=== PATIENT | female | born 1975 | race African-American/Black ===

== ENCOUNTER 2017-02-17 05:09 | Inpatient (IN) | payer MEDICAID ==
[2017-02-15 10:56] LABS: BASOPHILS 0.3 % (0.0-2.0); EOSINOPHILS 1.1 % (0-7); HEMATOCRIT 27.7 % (36.0-48.0); HEMOGLOBIN 8.5 g/dL (12-16); IMMATURE GRANULOCYTES 0.2 % (0-5); LYMPHOCYTES 27.1 % (15-50); MCH 21.6 pg (26.0-34.0); MCHC 30.7 g/dL (31.0-37.0); MCV 70.3 fL (80.0-100.0); MEAN PLATELET VOLUME 9.2 fL (7.4-10.4); MONOCYTES 12.6 % (2-11); NEUTROPHILS 58.7 % (40-80); RBC 3.94 10x6/uL (4.00-5.40); RDW 18.1 % (11.5-14.5); WBC 6.2 10x3/uL (4.8-10.8)
[2017-02-15 11:01] LABS: PLATELET COUNT 444 10x3/uL (130-400)
[2017-02-15 11:41] LABS: CALC OSMOLALITY 275 mosm/kg (275-300); CALCIUM 8.5 mg/dL (8.5-10.1); CARBON DIOXIDE 26.4 mmol/L (21.0-32.0); CHLORIDE - SERUM 105 mmol/L (98-107); CREATININE - SERUM 0.8 mg/dL (0.6-1.3); GLUCOSE 80 mg/dL (74-106); POTASSIUM - SERUM 3.8 mmol/L (3.5-5.1); SODIUM 139 mmol/L (136-145); UREA NITROGEN 10 mg/dL (7-18); eGFR NON AFRICAN AMERICAN 84 mL/min (90-120)
[2017-02-17] VITALS (13 sets, daily range): BP systolic 131–155; BP diastolic 78–91; Ht 167.6 cm; Wt 69.1 kg
[~2017-02-17] VITALS: Ht 167.6 cm; Wt 69.1 kg
[~2017-02-17 05:09] MED LIST: HYDROCHLOROTH12.5 M1 PO; PROTONIX20 MG PO; XANAX0.25 MG PO
[2017-02-17 06:13] LABS: HCG URINE NEGATIVE (NEGATIVE)
--- NOTE | 2017-02-17 07:17 | HP ---
PATIENT: FLORIDALMA JAY MEDICAL RECORD: [id number] ACCOUNT: [id number] LOCATION:[facility] [place] 79 ADMISSION DATE: 02/17/17 HISTORY AND PHYSICAL EXAMINATION HISTORY OF PRESENT ILLNESS: This patient is a 42-year-old 3, para 2, AB 1, black female with myomas, severe dysmenorrhea, menorrhagia scheduled for hysterectomy. ALLERGIES: No known medical allergies medication allergies. CURRENT MEDICATIONS: Include alprazolam and hydrochlorothiazide. PREVIOUS SURGERIES: Include a tubal ligation in 1997. FAMILY HISTORY: Noncontributory. REVIEW OF SYSTEMS: Denies chest pain or dyspnea. Positive for abnormal bleeding and severe dysmenorrhea. SOCIAL HISTORY: The patient is single, has been a smoker in the past. Nonsmoker now. Occasional ethanol use. Works as a information clerk cashier. PHYSICAL EXAMINATION: VITAL SIGNS: Weight is 162, blood pressure 140/80. HEENT: Grossly unremarkable. LUNGS: Clear. HEART: Regular rate and rhythm. BREASTS: Current and negative. ABDOMEN: Soft, large myomatous uterus is palpable. PELVIC: Current and deferred for anesthesia. EXTREMITIES: No cyanosis, clubbing or edema. NEUROLOGICAL: Grossly intact. IMPRESSION: Reveals a large myomatous uterus measured at 8.6 cm; however, palpably, it is much larger and contains myomas. She has negative cervical cultures. She has benign endometrial biopsy. PLAN: A total abdominal hysterectomy, possible bilateral salpingo-oophorectomy, ovarian conservation is planned if possible. I have discussed the potential risks of surgery including anesthesia, infection, bleeding, possibility of injury to other organs, and possibility of second operation to repair problems. I have answered all her questions. TRANSINT:[id number] Voice Confirmation ID: [id number] DOCUMENT ID: [id number] HISTORY AND PHYSICAL [id number] FLORIDALMA JAY BRENDA MD at 0717 CC: [id number] DICTATION DATE: 02/15/17 1640 CAMPUS ADMINISTRATOR: 02/15/17 1720 [place] [address]
--- NOTE | 2017-02-17 11:00 | NUR ---
PT WAS RECECEIVED FROM RECOVERY. SHE IS ASLEEP BUT EASY TO AROUSE. PT IS TRANSFERRED FROM STRETCHER TO BED. TOLERATED WELL GEN- ASLEEP BUT EASY TO AROUSE. LUNGS- CLEAR. HEART- RRR. ABD WITH UP AND DOWN INCISION. BULKY DRESSING INTACT. SMALL AMOUNT OF BLEEDING. SCD'S INTACT. IV PATENT R HAND. SALINE LOCK PATENT LEFT HAND. GROVES INTACT WITH ABOUT 150 CC LIGHT GREEN URINE. IV LR AT 125 CC. DILAUDID CHIEF PSYCHOLOGY INITIATED. PT INSTRUCTED . BED IS LOW, SIDE RAILS UP X 2 AND CALL LLIGHT IN REACH.
--- NOTE | 2017-02-17 11:45 | NUR ---
PT IS RESTING. FAMILY AT BEDSIDE. I EXPLAINED POST OP INSTRUCTIONS AND EQUIPMENT TO FAMILY.
--- NOTE | 2017-02-17 12:30 | NUR ---
PT STILL RANKS PAIN A 8. ECOURAGED HER TO PUSH HER DELIMER. GAVE HER SOME SPRITE., ENCOURAGED LIQUIDS. PT HAS TOLERATED LIQUIDS WELL. J OUT PUT IMPROVING.
--- NOTE | 2017-02-17 14:15 | NUR ---
DR QUEVEDO CALLED TO CHECK ON PT. I GAVE HER REPORT. SHE ORDERED A REPEAT HEMOGERAM TO BE DONE AT 1800. ORDERED.
--- NOTE | 2017-02-17 15:01 | NUR ---
PT IS RESTING IN BED. STATES HER PAIN IS ABOUT A 6. IV PATENT. GROVES INTACT. SCD'S INTACT. DRESSING CLEAN , DRY AND INTACT. FAMILY AT BEDSIDE. TOOK PT A SPRITE. SHE HAS BEEN DRINKING WATER AND TOLERATING WELL.
--- NOTE | 2017-02-17 16:15 | NUR ---
PT RATES PAIN A 8/10. TORADOL GIVEN SCHEDULED. URINE OUTPUT HAS BEEN 900 TOTAL SINCE 1100. URINE IS LIGHT GREEN IN COLOR.
--- NOTE | 2017-02-17 18:17 | NUR ---
PTS BED PADS CHANGED. MINIMAL BLEEDING. PT TOLERATED WELL. SON AT BEDSIDE. IV PATENT R HAND, SALINE LOCK INTACT LEFT HAND. GROVES INTACT AND SECURED TO R THIGH. SCD'S ARE ON. BED IS LOW, SIDE RAILS UP X 2 AND CALL LIGHT IN REACH.
[2017-02-17 18:43] LABS: HEMATOCRIT 31.7 % (36.0-48.0); HEMOGLOBIN 10.1 g/dL (12-16); MCH 23.7 pg (26.0-34.0); MCHC 31.9 g/dL (31.0-37.0); MCV 74.2 fL (80.0-100.0); MEAN PLATELET VOLUME 9.2 fL (7.4-10.4); RBC 4.27 10x6/uL (4.00-5.40); RDW 17.7 % (11.5-14.5); WBC 13.4 10x3/uL (4.8-10.8)
--- NOTE | 2017-02-17 19:56 | NUR ---
PT RESTING QUIETLY AT THIS TIME WATCHING TV. FAMILY MEMBER AT BEDSIDE. REQUESTS PILLOW AT THIS TIME. DENIES NEEDS. BED LOW. PHONE AND CALL LIGHT IN REACH. SRX2.
--- NOTE | 2017-02-17 20:25 | NUR ---
PT LYING IN BED WATCHING TV AT THIS TIME. FAMILY AT BEDSIDE. VSS. IV NOTED TO LEFT HAND. INFUSING D5LR @ 125. PATENT. DRESSING CDI. HEART RRR. LUNG SOUNDS CLEAR BILATERALLY. BOWEL SOUNDS ACTIVE X4 QUADRENTS. VERTICAL INCISION NOTED TO ABDOMEN WITH DRESSING. DRESSING CDI. GROVES CATHETER ATTACHED TO RIGHT THIGH. DRAINING LIGHT GREEN URINE. NO BLOOD NOTED TO BLUE PAD UNDER PT. SCDS NOTED TO BLE. PEDAL PULSES EQUAL BILATERALLY. PT RATES PAIN 3/10 AT THIS TIME. DENIES NEEDS. BED LOW. PHONE AND CALL LIGHT IN REACH. SRX2.
--- NOTE | 2017-02-17 21:47 | NUR ---
ADMINISTERED PEPCID PO PER ORDERS AT THIS TIME. PT REQUESTS ICE WATER AT THIS TIME. DENIES OTHER NEEDS. BED LOW. PHONE AND CALL LIGHT IN REACH. SRX2.
--- NOTE | 2017-02-17 22:25 | NUR ---
TORADOL ADMINISTERED IVP PER ORDERS AT THIS TIME FOR PAIN 07/08. PT DENIES NEEDS. BED LOW. PHONE AND CALL LIGHT IN REACH. SRX2.
[2017-02-18 00:05] VITALS: BP 129/73
--- NOTE | 2017-02-18 00:05 | NUR ---
PT RESTING QUIETLY AT THIS TIME. DENIES NEEDS. VSS. EMPTIED 1500 LIGHT GREEN URINE FROM GROVES AT THIS TIME. BED LOW. PHONE AND CALL LIGHT IN REACH. SRX2.
--- NOTE | 2017-02-18 01:53 | NUR ---
PT ENTRANCE GUARD LIGHT. D5LR INFUSION COMPLETE AT THIS TIME. CHANGED EMPTY D5LR TO FULL BAG OF D5LR. PT DENIES NEEDS AT THIS TIME. BED LOW. PHONE AND CALL LIGHT IN REACH. SRX2.
[2017-02-18 03:30] VITALS: BP 112/68
--- NOTE | 2017-02-18 03:30 | NUR ---
PT RESTING QUIETLY AT THIS TIME. AROUSED EASILY. VSS. EMPTIED 600 CC FROM GROVES AT THIS TIME. PT DENIES NEEDS. BED LOW. PHONE AND CALL LIGHT IN REACH. SRX2.
--- NOTE | 2017-02-18 05:36 | NUR ---
PT RESTING QUIETLY AT THIS TIME WITH EYES CLOSED. RESPIRATIONS EVEN, NON-LABORED. NO ACUTE DISTRESS NOTED AT THIS TIME. BED LOW. PHONE AND CALL LIGHT IN REACH. SRX2.
--- NOTE | 2017-02-18 06:38 | NUR ---
PT AWAKE LOOKING AT CELL PHONE AT THIS TIME. DENIES NEEDS. BED LOW. PHONE AND CALL LIGHT IN REACH. SRX2.
[2017-02-18 06:44] LABS: HEMATOCRIT 27.6 % (36.0-48.0); HEMOGLOBIN 8.9 g/dL (12-16); MCH 23.5 pg (26.0-34.0); MCHC 32.2 g/dL (31.0-37.0); MCV 72.8 fL (80.0-100.0); MEAN PLATELET VOLUME 9.7 fL (7.4-10.4); RBC 3.79 10x6/uL (4.00-5.40); RDW 18.1 % (11.5-14.5); WBC 10.9 10x3/uL (4.8-10.8)
--- NOTE | 2017-02-18 07:15 | NUR ---
PT IS RECEIVED THIS AM LYING IN BED. PT OFFERS NO COMPLAINTS. HER SON STAYED WITH HER LAST PM. BED IS LOW, SIDE RAILS UP X 2 AND CALL LIGHT IN REACH. GEN- AWAKE AND ALERT. LUNGS- CLEAR. HEART- RRR. PT HAS A BIRTHMARK NOTED ON HER LEFT SHOULDER WHICH LOOKS LIKE A BRUISE. ABDOMEN IS SOFT. BS+ DRESSING INTACT MOST OF ABDOMEN. CLEAN , DRY AND INTACT. EXT- SCD'S INTACT. GROVES INTACT WITH GOOD URINE OUTPUT WHICH IS JANE IN COLOR. IV PATENT R HAND WITH D5LR INFUSING AT 125 CC/HR AND DILAUDID PELLET MILL OPERATOR WHICH HAS BEEN TURNED OFF. SALINE LOCK PATENT LEFT HAND.
--- NOTE | 2017-02-18 07:22 | OP ---
PATIENT NAME: FLORIDALMA JAY MEDICAL RECORD: [id number] :79 LOCATION:[facility] D.1217 ADMISSION DATE:02/17/17 SURGEON: JEN QUEVEDO MD DATE OF OPERATION: 02/17/2017 PREOPERATIVE DIAGNOSES: Myomas, dysmenorrhea, menorrhagia and anemia. POSTOPERATIVE DIAGNOSES: Myomas, dysmenorrhea, menorrhagia and anemia. PROCEDURE: Total abdominal hysterectomy with bilateral salpingectomy. SURGEON: Jen Quevedo MD ANESTHESIA: General. FINDINGS: An irregular 18-week size myomatous uterus filling the pelvis and lower abdomen. Normal-appearing ovaries. Normal-appearing tubes. ESTIMATED BLOOD LOSS: 350 cc. COMPLICATIONS OF SURGERY: None. OPERATIVE NOTE: The patient was taken to the OR and under adequate general anesthesia, prepped and draped in the usual manner for abdominal procedures. Examination revealed a large irregular uterus filling the entire lower abdomen. Decision was made for a vertical incision. Vertical incision was made from the symphysis pubis to the umbilicus and extending to the left of the umbilicus approximately 4 cm into the upper abdomen. This incision was extended through subcutaneous tissue, fascia, dividing muscles in the midline. Peritoneum elevated and incised and this incision extended from the symphysis pubis to the upper limits of the incision. This revealed an 18-week size very irregular myomatous uterus filling the entire pelvis and lower abdomen as described above. Ovaries appeared to be normal. Tubes appeared to be normal. No other abnormalities were visible in the abdomen. The round ligaments were identified on the right and left and ligated using Geovanna clamps and #1 chromic suture. The uteroovarian ligaments and fallopian tubes were ligated near the uterine cornu on the right and left using Geovanna clamps and #1 chromic suture. Ovaries were then moved to the upper abdomen and dissection anteriorly along the broad ligament was performed without difficulty or complication. The uterine vessels were ligated on the right and left using Geovanna clamps and #1 chromic suture. Once this was accomplished, the uterine fundus was amputated from the uterine cervix using electrocautery. Hemostasis remained good. The cervix was grasped using Allis clamps. The bladder was advanced inferiorly over the cervix using blunt dissection and sharp dissection with Metzenbaum scissors. The cardinal ligaments were progressively ligated using Geovanna clamps and #1 chromic suture. The vaginal angles were then clamped on the right and left and specimen excised. This portion of the specimen included the cervix, the previous portion of the specimen included uterine fundus. Vaginal angles were made hemostatic using a U configuration #1 chromic suture. Vaginal apex closed with [id number] #1 chromic sutures. The pelvis was copiously irrigated and suctioned and hemostasis was confirmed. The tubes were then addressed and excised using #1 chromic free ties and sent as a part of the specimen. Pelvis was again copiously irrigated and suctioned and hemostasis confirmed. Yousif was applied at the vaginal apex and other raw surfaces in the OPERATIVE REPORT [id number] FLORIDALMA JAY S pelvis. Sponge, needle counts were correct. All instruments were removed. Methylene blue was given early in the case to confirm integrity of the urinary tract. There was not spillage in the abdomen or pelvis. The fascial layer was closed with a running noninterlocking #1 PDS loop suture. Skin reapproximated in 2 layers, first layer a running noninterlocking 2-0 plain gut suture followed by a subcuticular 2-0 plain gut suture. Dermabond was applied. A Steri-Strip dressing was applied followed by a pressure dressing. The patient went to the recovery area in good condition. Sponge and needle counts correct times 2. TRANSINT:[id number] Voice Confirmation ID: [id number] DOCUMENT ID: [id number] JEN QUEVEDO MD at 0722 CC: [id number] DICTATION DATE: 02/17/17 1008 SERVICE DESK SPECIALIST: 02/17/17 1413 ADM IN [place] [id number] [place] [address]
[2017-02-18 07:30] VITALS: BP 134/80
--- NOTE | 2017-02-18 10:10 | NUR ---
REMOVED PATIENT'S GROVES CATHETER AFTER DEFLATING THE BALLOON AND GIVING EXPLANATION OF WHAT WE WERE DOING. GROVES FULLY INTACT UPON REMOVAL. 300CC OF URINE EMPTIED FROM COLLECTION BAG. IV SL TO THE LEFT HAND REMOVED PER REQUEST DUE TO IRRITATION. DISCUSSED THE POC FOR THE DAY AND THE PATIENT EXPRESSES UNDERSTANDING.
--- NOTE | 2017-02-18 10:49 | NUR ---
PT IS RESTING IN BED. STATES HER PAIN IS A 7-8. TORADOL GIVEN IV. SHE HAS RECEIVED 5 OUT OF 6 DOSES SCHEDULED. STATES HER PAIN IS MAINLY ON THE R SIDE OF HER ABDOMEN. SHE STATES THAT DR QUEVEDO LEFT HER OVARIES. BED IS LOW, SIDE RAILS UP X 2 AND CALL LIGHT IN REACH.
--- NOTE | 2017-02-18 13:13 | NUR ---
PT UP TO GO TO BATHROOM WITH ASSISTANCE. PT VOIDED 400 CC JANE COLORED URINE. PT TOLERATED GETTING UP FOR THE FIRST TIME VERY WELL. BRUSHED PTS HAIR FOR HER. BED IS LOW, SIDE RAILS UP X 2 AND CALL LIGHT IN REACH.
--- NOTE | 2017-02-18 17:49 | NUR ---
PT UP TO BATHROOM. DOING WELL. VOIDED 500 CC. WE THEN WALKED IN HALLWAY TO WAITING ROOM AND BACK. PT TOLERATED WELL. PT BACK TO BED. DRESSING REMOVED. INCISION CLEAN AND DRY. INCISION INTACT. PT INSTRUCTED ON INCISION CARE.
[2017-02-18 19:18] VITALS: BP 136/89
--- NOTE | 2017-02-18 19:18 | NUR ---
PT RECEIVED SITTING UP IN BED ON CELL PHONE AT THIS TIME. AAOX3. VSS. S/L NOTED TO RIGHT WRIST. DRESSING CDI. HEART RRR. LUNG SOUNDS CLEAR BILATERALLY. BOWEL SOUNDS ACTIVE X4 QUADRENTS. ABDOMEN SOFT WITH TENDERNESS. VERTICAL INCISION NOTED TO ABDOMEN WITH STERI STRIPS. CDI. NO REDNESS, SWELLING, OR PURULENT DRAINAGE NOTED. PT RATES PAIN 7/10 AT THIS TIME. SCDS NOTED TO BLE. NO BLOOD NOTED TO PAD UNDER PT AT THIS TIME. PT REQUESTS ICE WATER. DENIES OTHER NEEDS. BED LOW. PHONE AND CALL LIGHT IN REACH. SRX2.
--- NOTE | 2017-02-18 20:38 | NUR ---
ADMINISTERED OXYCODONE PO PER ORDERS AT THIS TIME FOR PAIN PT RATES 06/07. PT DENIES OTHER NEEDS. BED LOW. PHONE AND CALL LIGHT IN REACH. SRX2.
--- NOTE | 2017-02-18 21:24 | NUR ---
PT GETTING UP IN SHOWER AT THIS TIME. COMPLETE BED LINEN CHANGE DONE AT THIS TIME. PT DENIES NEEDS. BED LOW. PHONE AND CALL LIGHT IN REACH. SRX2.
--- NOTE | 2017-02-18 22:24 | NUR ---
PT C/O MILD SOB. VITAL SIGNS TAKEN. BP-129/87 PULSE-95 O2 98% ON ROOM AIR. INSTRUCTED PT TO TAKE STEADY DEEP BREATHS. PT BREATHING EVENED OUT. INSTRUCTED PT I WOULD TURN LIGHT OFF AND TO TRY AND GET A LITTLE REST. WILL CONTINUE TO MONITOR. BED LOW. PHONE AND CALL LIGHT IN REACH. SRX2.
[2017-02-18 23:30] VITALS: BP 126/79
--- NOTE | 2017-02-18 23:30 | NUR ---
PT RESTING QUIETLY AT THIS TIME WITH EYES CLOSED. AROUSED EASILY. VSS. PT REQUESTS BLANKET AT THIS TIME. DENIES OTHER NEEDS. BED LOW. PHONE AND CALL LIGHT IN REACH. SRX2.
--- NOTE | 2017-02-19 01:27 | NUR ---
PT ELECTROMYOGRAPHIC TECHNICIAN LIGHT. REQUESTS MEDICATION FOR PAIN 08/08 AT THIS TIME. ADMINISTERED OXYCODONE PO PER ORDERS AT THIS TIME. PT DENIES OTHER NEEDS. BED LOW. PHONE AND CALL LIGHT IN REACH. SRX2.
[2017-02-19 03:30] VITALS: BP 130/81
--- NOTE | 2017-02-19 03:30 | NUR ---
PT RESTING QUIETLY AT THIS TIME WITH EYES CLOSED. AROUSED EASILY. PT DENIES NEEDS AT THIS TIME. BED LOW. PHONE AND CALL LIGHT IN REACH. SRX2.
--- NOTE | 2017-02-19 05:40 | NUR ---
PT RESTING QUIETLY AT THIS TIME WITH EYES CLOSED. RESPIRATIONS EVEN, NON-LABORED. NO ACUTE DISTRESS NOTED AT THIS TIME. BED IN LOWEST. PHONE AND CALL LIGHT IN REACH. SRX2.
--- NOTE | 2017-02-19 06:30 | NUR ---
PT RINGS CL. THIS RN TO BEDSIDE. PT C/O INCISIONAL PAIN RATED 8/10. PLAN TO BRING MEDICATION.
--- NOTE | 2017-02-19 06:35 | NUR ---
OXYCODONE IR GIVEN FOR PAIN RATED 8/10 PER ORDERS. SEE EMAR. PT DENIES FURTHER NEEDS AT THIS TIME. WILL CONTINUE TO MONITOR.
[2017-02-19 07:30] VITALS: BP 148/76
--- NOTE | 2017-02-19 07:30 | NUR ---
PT IS RECEIVED LYING IN BED THIS AM. SHE STATES PAIN IS AN 8. SHE RECEIVED PAIN MED AT 0630. GEN- AWAKE AND ALERT. LUNGS- CLEAR. HEART- RRR. ABD- SOFT, TENDER. BS- FEW. INCISION IS VERTICAL AND IS CLEAN DRY AND INTACT. DERMABOND AND STERI STRIPS INTACT. 4x4 GAUZE PLACED AT CREASE TO WICK AWAY MOISTURE. EXT- NO EDEMA. WARM AND DRY. PULSES PALPABLE. IV R HAND INTACT. TRIED TO FLUSH WITH NS AND WAS UNABLE TO FLUSH. SALINE LOCK D'CD. TIP INTACT. PT IS VOIDING WITHOUT DIFFICULTY. PT HAS BEEN AMBULATING.
--- NOTE | 2017-02-19 08:00 | NUR ---
DR QUEVEDO HERE TO SEE PT. NEW ORDERS NOTED. DR QUEVEDO STRESSED HER AMBULATING AND MOVING AROUND SO SHE WILL PASS GAS. DR QUEVEDO ALSO OREDERED HER AN ABDOMINAL BINDER.
--- NOTE | 2017-02-19 10:17 | NUR ---
PT IS SLEEPING. EASILY AROUSED. BED IS LOW, SIDE RAILS UP X 2 AND CALL LIGHT IN REACH.
--- NOTE | 2017-02-19 11:58 | NUR ---
PROVIDED PAIN MEDICATION ORDERED AND REQUESTED FOR PAIN OF 8 ON NUMERIC SCALE. ASKS FOR LIGHTS TO BE OFF AND STATES THAT SHE WANTS TO GET SOME REST. S/R UP X 2, BED IN LOWEST POSITION, CALL LIGHT AND PHONE WITHIN REACH.
--- NOTE | 2017-02-19 12:28 | NUR ---
RESTING WITH EYES CLOSED. EASILY AROUSED. RATES PAIN LEVEL 2 ON NUMERIC SCALE. STATES "ITS FEELING BETTER".
--- NOTE | 2017-02-19 12:30 | NUR ---
DR QUEVEDO IS HERE TO SEE PT. PT STATES THAT SHE HAS NOT PASSED ANY GAS AND WOULD LIKE TO STAY ANOTHER NIGHT. DR QUEVEDO OK'D. ENCOURAGED PT TO AMBULATE.
--- NOTE | 2017-02-19 14:00 | NUR ---
PT IS STILL SLEEPING. BED IS LOW, SIDE RAILS UP X 2 AND CALL LIGHT IN REACH.
--- NOTE | 2017-02-19 15:30 | NUR ---
PT CAME OUT TO DESK AND REQUEST THAT I WALK WITH HER. I DID. ABDOMINAL BINDER PUT ON HER. SHE FELT MUCH MORE SECURE ONCE BINDER WAS APPLIED. WE WALKED 250 FT. PT BACK TO ROOM AND WANTED TO GET IN SHOWER. STATES SHOWER FELT GREAT. HER LINENS WERE CHANGED.
--- NOTE | 2017-02-19 17:11 | NUR ---
PT IS RESTING IN BED. SHE DOESN'T WANT TO DO ANYTHING AT THIS TIME.
[2017-02-19 19:19] VITALS: BP 139/90
--- NOTE | 2017-02-19 19:19 | NUR ---
PT RECEIVED LYING IN BED RESTING QUIETLY AT THIS TIME. AAOX3. VITAL SIGNS TAKEN. BP-139/90. S/L NOTED TO RIGHT WRIST. DRESSING CDI. PT RATES PAIN 7/10 AT THIS TIME. HEART RRR. LUNG SOUNDS CLEAR BILATERALLY. BOWEL SOUNDS ACTIVE X4 QUADRENTS. ABDOMEN SOFT WITH TENDERNESS. VERTICAL INCISION NOTED TO ABDOMEN WITH STERI STRIPS. CDI. NO REDNESS, SWELLING, OR PURULENT DRAINAGE NOTED. SCDS NOTED TO BLE. PT DENIES NEEDS AT THIS TIME. REQUESTS LIGHT BE TURNED OFF. BED LOW. PHONE AND CALL LIGHT IN REACH. SRX2.
--- NOTE | 2017-02-19 20:44 | NUR ---
PT TALKING ON PHONE AT THIS TIME. DENIES NEEDS. BED LOW. PHONE AND CALL LIGHT IN REACH. SRX2.
--- NOTE | 2017-02-19 21:13 | NUR ---
PT AMBULATED TO L&D WAITING ROOM AND BACK TWICE AT THIS TIME. DENIES NEEDS.
--- NOTE | 2017-02-19 22:26 | NUR ---
ADMINISTERED OXYCODONE PO PER ORDERS AT THIS TIME FOR PAIN PT RATES 06/07. DENIES NEEDS. BED LOW. PHONE AND CALL LIGHT IN REACH. SRX2.
[2017-02-19 23:46] VITALS: BP 123/88
--- NOTE | 2017-02-19 23:46 | NUR ---
PT RESTING QUIETLY AT THIS TIME. VSS. PT REQUESTS PUDDING AND SABINA CRACKERS AT THIS TIME. DENIES OTHER NEEDS. BED LOW. PHONE AND CALL LIGHT IN REACH. SRX2.
--- NOTE | 2017-02-20 03:32 | NUR ---
PT RESTING QUIETLY AT THIS TIME WITH EYES CLOSED. AROUSED EASILY. DENIES NEEDS. BED LOW. PHONE AND CALL LIGHT IN REACH. SRX2.
[2017-02-20 03:33] VITALS: BP 125/80
--- NOTE | 2017-02-20 05:01 | NUR ---
PT REQUESTS MEDICATION FOR PAIN 05/08 AT THIS TIME. ADMINISTERED OXYCODONE PER ORDERS. PT DENIES OTHER NEEDS. BED LOW. PHONE AND CALL LIGHT IN REACH. SRX2.
--- NOTE | 2017-02-20 06:14 | NUR ---
PT RESTING QUIETLY AT THIS TIME. AROUSED EASILY. DENIES NEEDS. BED LOW. PHONE AND CALL LIGHT IN REACH. SRX2.
[2017-02-20 07:50] VITALS: BP 126/92
--- NOTE | 2017-02-20 07:50 | NUR ---
PT AWAKE, ALERT, RESTING IN BED. TURNS SELF FROM SIDE TO SIDE AD JUVENTINO. VERTICAL MIDLINE ABD INC C/D/I WITH STERI STRIPS. PT HAS SMALL PILLOW NEXT TO INCISION TO BRACE. PT NOTED SMALL AMT OF SEROUS DRAINAGE ON PILLOW. FUNMI PAD PLACED AT LOWER POLE OF INCISION. REG DIET SERVED AND TOLERATED. PT STATES SHE PASSED GAS LAST NIGHT. ENCOURAGED AMBULATION.
--- NOTE | 2017-02-20 08:32 | NUR ---
RESTING WITH LIGHTS DIMMED.
--- NOTE | 2017-02-20 09:10 | NUR ---
AM MEDS GIVEN. PT SITTING UP TALKING ON PHONE. BEEF BROTH PROVIDED REQUESTED. PT ASKS FOR TEMP TO BE TAKEN-98.4
--- NOTE | 2017-02-20 09:38 | NUR ---
IN TO REASSESS PAIN. PT RESTING EASILY WITH EYES CLOSED. LEFT UNDISTURBED.
--- NOTE | 2017-02-20 10:25 | NUR ---
CONTINUES TO REST EASILY WITH LIGHTS DIMMED. LEFT UNDISTURBED.
--- NOTE | 2017-02-20 10:39 | NUR ---
LAB HERE FOR STAT HEMOGRAM.
--- NOTE | 2017-02-20 10:40 | NUR ---
LAB HERE FOR LAB DRAW.
--- NOTE | 2017-02-20 10:50 | NUR ---
DR. QUEVEDO HERE FOR ROUNDS.
[2017-02-20 11:58] LABS: HEMATOCRIT 27.7 % (36.0-48.0); HEMOGLOBIN 8.9 g/dL (12-16); MCH 23.3 pg (26.0-34.0); MCHC 32.1 g/dL (31.0-37.0); MCV 72.5 fL (80.0-100.0); MEAN PLATELET VOLUME 9.1 fL (7.4-10.4); RBC 3.82 10x6/uL (4.00-5.40); WBC 11.8 10x3/uL (4.8-10.8)
--- NOTE | 2017-02-20 12:11 | NUR ---
DR. QUEVEDO ADVISED OF PT'S LAB. D/C ORDER REC'D.
[2017-02-20] MEDS ORDERED: MEPERIDINE HCL50 MG PO (12:13)
[2017-02-20] MEDS ORDERED: IBUPROFEN600 MG PO (12:13)
--- NOTE | 2017-02-20 12:30 | NUR ---
D/C INSTRUCTIONS EXPLAINED TO PT. VOICED UNDERSTANDING. COPIES OF ALL GIVEN, WELL WRITTEN RX'S FOR DEMEROL AND MOTRIN PER DR. QUEVEDO.
--- NOTE | 2017-02-20 13:00 | NUR ---
D/C'D HOME VIA W/C TO PRIVATE CAR.
--- NOTE | 2017-02-22 07:28 | DS ---
PATIENT:FLORIDALMA JAY :79 MEDICAL RECORD: [id number] DISCHARGE SUMMARY ADMISSION DATE: 02/17/17 DISCHARGE DATE: 02/20/17 HOSPITAL COURSE: The patient is a 42-year-old black female who underwent total abdominal hysterectomy, bilateral salpingectomy on 02/17/2017. She did well postoperatively with normal recovery. No complications. At the time of her discharge, she was tolerating regular diet and ambulating without problems, to return to the office for followup in 2 weeks and again in 4 weeks. Postoperative instructions were given for wound care and activity level. TRANSINT:[id number] Voice Confirmation ID: [id number] DOCUMENT ID: [id number] JORGE QUEVEDO MD at 0728 CC: [id number] DICTATION DATE: 02/21/17 1137 TALENT DEVELOPMENT MANAGER: 02/21/172032 DIS IN 02/20/17 [place] [address] [place] [address]
== END 2017-02-20 13:00 | disposition home or self-care (01) | DRG 743 ==
LOC: D.SDCHOLD 05:09 → D.WS 10:42
PROVIDERS: ADMIT Obstetrics & Gynecology
PROC: 0UTC0ZZ Resection of Cervix, Open Approach (ICD-10-PCS; 2017-02-17)
PROC: 0UT70ZZ Resection of Bilateral Fallopian Tubes, Open Approach (ICD-10-PCS; 2017-02-17)
PROC: 0UT90ZZ Resection of Uterus, Open Approach (ICD-10-PCS; principal; 2017-02-17 07:30)
DX: D25.9 Leiomyoma of uterus, unspecified (principal); N94.6 Dysmenorrhea, unspecified

== ENCOUNTER 2017-03-09 01:10 | Emergency (ER) | payer MEDICAID ==
[2017-02-17 15:28] VITALS: BMI 24.5
[~2017-03-09 01:10] MED LIST changes: +IBUPROFEN600 MG PO; +MEPERIDINE HCL50 MG PO
[2017-03-09 01:47] LABS: APPEARANCE HAZY (CLEAR); BILIRUBIN NEGATIVE (NEGATIVE); COLOR YELLOW (YELLOW); GLUCOSE NEGATIVE (NEGATIVE); KETONE NEGATIVE (NEGATIVE); LEUKOCYTE ESTERASE 1+ (NEGATIVE); NITRITE NEGATIVE (NEGATIVE); PROTEIN NEGATIVE (NEGATIVE); SPECIFIC GRAVITY 1.025 (1.005-1.020); UROBILINOGEN NORMAL (NORMAL)
[2017-03-09 01:55] LABS: BACTERIA MODERATE /hpf (NONE SEEN); EPITHELIAL CELLS 0-5 /hpf (0-5); GRANULAR CAST RARE /lpf (NONE SEEN); HYALINE CAST 0-5 /lpf (NONE SEEN); MUCUS >1+ /lpf (NONE SEEN); RED CELLS - URINE 0-5 /hpf (0-5); WHITE CELLS - URINE 0-5 /hpf (0-5)
[2017-03-09 02:18] LABS: BASOPHILS 0.5 % (0.0-2.0); HEMATOCRIT 31.3 % (36.0-48.0); HEMOGLOBIN 9.9 g/dL (12-16); IMMATURE GRANULOCYTES 0.2 % (0-5); LYMPHOCYTES 30.3 % (15-50); MCH 23.3 pg (26.0-34.0); MCHC 31.6 g/dL (31.0-37.0); MCV 73.8 fL (80.0-100.0); MEAN PLATELET VOLUME 8.9 fL (7.4-10.4); MONOCYTES 8.7 % (2-11); NEUTROPHILS 58.3 % (40-80); PLATELET COUNT 620 10x3/uL (130-400); RBC 4.24 10x6/uL (4.00-5.40); RDW 19.3 % (11.5-14.5); WBC 9.3 10x3/uL (4.8-10.8)
[2017-03-09 02:30] LABS: ALBUMIN 3.4 g/dL (3.4-5.0); ANION GAP 14.4 mmol/L (8-16); BILIRUBIN - TOTAL 0.13 mg/dL (0.2-1.3); CALCIUM 9.1 mg/dL (8.5-10.1); CARBON DIOXIDE 25.4 mmol/L (21.0-32.0); CREATININE - SERUM 0.9 mg/dL (0.6-1.3); POTASSIUM - SERUM 3.8 mmol/L (3.5-5.1); PROTEIN - SERUM 7.1 g/dL (6.4-8.2)
== END 2017-03-09 02:53 | disposition home or self-care (01) ==
LOC: D.ER 01:10
PROVIDERS: Family Medicine
DX: K21.9 Gastro-esophageal reflux disease without esophagitis (principal); G89.18 Other acute postprocedural pain; Z72.0 Tobacco use

== ENCOUNTER 2017-11-04 12:50 | Emergency (ER) | payer MEDICAID ==
[2017-02-17 15:28] VITALS: BMI 24.5
[2017-11-08] MEDS ORDERED: HCTZ25 MG PO (15:21)
[2017-11-08] MEDS ORDERED: CELEXA10 MG PO (15:22)
[2017-11-08] MEDS ORDERED: TESSALON PERLE100 MG PO (15:24)
== END 2017-11-04 14:27 | disposition home or self-care (01) ==
LOC: D.ER 12:50
DX: J01.90 Acute sinusitis, unspecified (principal); K21.9 Gastro-esophageal reflux disease without esophagitis

== ENCOUNTER 2017-11-09 05:54 | Day surgery (SDC) | payer MEDICAID ==
[2017-11-08 17:20] LABS: HEMATOCRIT 40.7 % (36.0-48.0); MCH 29.7 pg (26.0-34.0); MCHC 34.4 g/dL (31.0-37.0); MCV 86.4 fL (80.0-100.0); RBC 4.71 10x6/uL (4.00-5.40); RDW 13.9 % (11.5-14.5)
[2017-11-08 17:25] LABS: PLATELET COUNT 298 10x3/uL (130-400)
[2017-11-08 17:33] LABS: CALCIUM 9.3 mg/dL (8.5-10.1); CARBON DIOXIDE 26.6 mmol/L (21.0-32.0); POTASSIUM - SERUM 3.6 mmol/L (3.5-5.1)
[2017-11-08 18:21] LABS: EOSINOPHILS 3 % (0-7); LYMPHOCYTES 66 % (15-50); MONOCYTES 2 % (2-11); NEUTROPHILS 29 % (40-80); PLATELET ESTIMATE NORMAL
[~2017-11-09] VITALS: Ht 167.6 cm; Wt 69.4 kg
[~2017-11-09 05:54] MED LIST changes: +CELEXA10 MG PO; +HCTZ25 MG PO; +TESSALON PERLE100 MG PO
[2017-11-09] MEDS ORDERED: ZPAK PO (06:56)
[2017-11-09 06:57] VITALS: BP 121/78; Ht 167.6 cm; Wt 69.4 kg
[2017-11-09] MEDS ORDERED: HYDROCODONE-APA1 TAB PO (08:48)
--- NOTE | 2017-11-09 12:08 | NUR ---
RESTING EASILY WITH EYES CLOSED, EVEN RESP.
--- NOTE | 2017-11-09 12:19 | OP ---
PATIENT NAME: FLORIDALMA JAY MEDICAL RECORD: [id number] :79 LOCATION:D.OPS ADMISSION DATE: SURGEON: JEAN MARIE SULLIVAN MD DATE OF OPERATION: 11/09/2017 PREOPERATIVE DIAGNOSES: 1. Umbilical incisional hernia. 2. Hypertension. POSTOPERATIVE DIAGNOSES: 1. Umbilical incisional hernia. 2. Hypertension. PROCEDURE: Umbilical hernia repair with 6.4-cm Proceed mesh. SURGEON: Jean Marie Sullivan MD REPORT OF PROCEDURE: The patient's abdomen was prepped and draped in sterile fashion. A semicircular incision was made on the inferior aspect of the umbilicus. Electrocautery was used to dissect through the subcutaneous tissue and through the hernia sac. This hernia sac was removed from the undersurface of the patient's umbilicus. As we removed the hernia sac down to the fascial edges, we can measure out the fascial defect and it was noted to be about 2 cm to 2.5 cm in greatest diameter. The surface of the fascia was cleared off in all directions. There did not appear to be any other hernia defects present in the midline. The 6.4-cm Proceed mesh was inserted and sutured down on all 4 sides using interrupted #0 Prolenes. We then closed the fascia transversely over top of the mesh using a running #0 Vicryl. We irrigated out the wound with normal saline. The umbilicus was then tacked down to the fascia using an interrupted 3-0 Vicryl. Kash's was reapproximated with interrupted 3-0 Vicryl. We then infused 10 mL of 0.25% Marcaine plain into the surrounding tissues. The skin incision was then closed with running subcutaneous 5-0 Monocryl and dressed appropriately. COMPLICATIONS: None. CONDITION: Stable. ANESTHESIA: General endotracheal and local. BLOOD LOSS: Minimal. TRANSINT:[id number] Voice Confirmation ID: [id number] DOCUMENT ID: [id number] JEAN MARIE SULLIVAN MD at 1219 CC: AYUSH LOVE MD [id number] DICTATION DATE: 11/09/17 0851 PUBLICATIONS SALES REPRESENTATIVE: 11/09/17 [address] [place] [address]
--- NOTE | 2017-11-09 14:25 | NUR ---
PATIENT REPORTS PAIN RATED AT 10/10. ICE PACK APPLIED TO WOUND. EDUCATED PATIENT ON DIVERSION A PAIN CONTROL MEASURE
--- NOTE | 2017-11-09 14:31 | NUR ---
1356 TORADOL 30MG IV ORDERED FOR DR. SULLIVAN FOR PAIN. PT RANKS PAIN 09/07. Cynthia VICTOR R.N.
--- NOTE | 2017-11-09 14:40 | NUR ---
PATIENT RATES PAIN NOW AT 5/10. LYING IN BED, USING DEEP BREATHING AND DIVERSION ADDITIONAL PAIN CONTROL
--- NOTE | 2017-11-09 16:40 | NUR ---
PATIENT STATES FEELING BETTER, READY TO GO HOME. AWAITING FAMILY TO RETURN FOR DISCHARGE HOME. ASSISTED PATIENT TO DRESS IN PERSONAL CLOTHING. PATIENT AMBULATES TO BATHROOM AND VOIDS LARGE AMOUNT IN TOILET WITHOUT DIFFICULTY. AMBULATES WITHOUT UNSTEADINESS.
--- NOTE | 2017-11-09 17:03 | NUR ---
DISCHARGE INSTRUCTIONS REVIEWED WITH PATIENT, SON, AND SISTER. PATIENT DISCHARGED HOME VIA WHEELCHAIR TO PRIVATE VEHICLE WITH SON AND SISTER
== END 2017-11-09 17:03 | disposition home or self-care (01) ==
LOC: D.OPS 05:54 → D.PAN 07:30 → D.OPS 07:30
PROVIDERS: Surgery
DX: K42.9 Umbilical hernia without obstruction or gangrene (principal); F17.200 Nicotine dependence, unspecified, uncomplicated; I10 Essential (primary) hypertension; K21.9 Gastro-esophageal reflux disease without esophagitis; Z01.812 Encounter for preprocedural laboratory examination

== ENCOUNTER 2017-11-14 08:00 | Emergency (ER) | payer MEDICAID ==
[2017-11-09 06:57] VITALS: BMI 24.7
[~2017-11-14 08:00] MED LIST changes: +HYDROCODONE-APA1 TAB PO; +ZPAK PO
[2017-11-14 11:05] LABS: BASOPHILS 0.3 % (0-2); EOSINOPHILS 1.1 % (0-7); HEMATOCRIT 40.4 % (36.0-48.0); HEMOGLOBIN 13.8 g/dL (12-16); IMMATURE GRANULOCYTES 0.3 % (0-5); LYMPHOCYTES 29.7 % (15-50); MCH 29.7 pg (26.0-34.0); MCHC 34.2 g/dL (31.0-37.0); MCV 86.9 fL (80.0-100.0); MEAN PLATELET VOLUME 9.8 fL (7.4-10.4); MONOCYTES 10.1 % (2-11); NEUTROPHILS 58.5 % (40-80); PLATELET COUNT 355 10x3/uL (130-400); RBC 4.65 10x6/uL (4.00-5.40); RDW 13.4 % (11.5-14.5); WBC 7.2 10x3/uL (4.8-10.8)
[2017-11-14 11:16] LABS: ALBUMIN 3.4 g/dL (3.4-5.0); ANION GAP 15.4 mmol/L (8-16); BILIRUBIN - TOTAL 0.3 mg/dL (0.2-1.3); CALCIUM 9.1 mg/dL (8.5-10.1); CARBON DIOXIDE 25.1 mmol/L (21.0-32.0); POTASSIUM - SERUM 3.5 mmol/L (3.5-5.1); PROTEIN - SERUM 7.9 g/dL (6.4-8.2)
[2017-11-14 11:21] LABS: APPEARANCE HAZY (CLEAR); BILIRUBIN NEGATIVE (NEGATIVE); COLOR YELLOW (YELLOW); GLUCOSE NEGATIVE (NEGATIVE); KETONE NEGATIVE (NEGATIVE); NITRITE NEGATIVE (NEGATIVE); PROTEIN NEGATIVE (NEGATIVE); UROBILINOGEN NORMAL (NORMAL)
[2017-11-14 11:22] LABS: BACTERIA MODERATE /hpf (NONE SEEN); RED CELLS - URINE 0-5 /hpf (0-5); WHITE CELLS - URINE 0-5 /hpf (0-5)
== END 2017-11-14 15:00 | disposition home or self-care (01) ==
LOC: D.ER 08:00
PROVIDERS: Emergency Medicine
DX: G89.18 Other acute postprocedural pain (principal); K21.9 Gastro-esophageal reflux disease without esophagitis

== ENCOUNTER 2018-07-07 15:58 | Emergency (ER) | payer MEDICAID ==
[~2018-07-07] VITALS: Ht 167.6 cm; Wt 68.2 kg
[2018-07-07 16:17] VITALS: Ht 167.6 cm; Wt 68.2 kg
[2018-07-07] MEDS ORDERED: ROBAXIN500 MG PO (22:13)
[2018-07-07] MEDS ORDERED: ANAPROX DS550 MG PO (22:13)
[2018-07-08 00:52] VITALS: BP 149/92
== END 2018-07-07 23:45 | disposition home or self-care (01) ==
LOC: D.ER 15:58
DX: S30.0XXA Contusion of lower back and pelvis, initial encounter (principal); W19.XXXA Unspecified fall, initial encounter; Y93.89 Activity, other specified; Y92.019 Unspecified place in single-family (private) house as the place of occurrence of the external cause; I10 Essential (primary) hypertension

== ENCOUNTER 2019-11-25 21:18 | Emergency (ER) | payer BC ==
[~2019-11-25] VITALS: Ht 167.6 cm; Wt 78.6 kg
[~2019-11-25 21:18] MED LIST changes: +ANAPROX DS550 MG PO; +ROBAXIN500 MG PO
[2019-11-25 21:22] VITALS: Ht 167.6 cm; Wt 78.6 kg
[2019-11-25 21:56] LABS: APPEARANCE HAZY (CLEAR); BILIRUBIN NEGATIVE (NEGATIVE); COLOR YELLOW (YELLOW); GLUCOSE NEGATIVE (NEGATIVE); KETONE NEGATIVE (NEGATIVE); NITRITE NEGATIVE (NEGATIVE); PROTEIN NEGATIVE (NEGATIVE); SPECIFIC GRAVITY 1.005 (1.005-1.020); UROBILINOGEN NORMAL (NORMAL)
[2019-11-25 22:03] LABS: BASOPHILS 0.3 % (0-2); EOSINOPHILS 1.4 % (0-7); HEMATOCRIT 38.1 % (36.0-48.0); IMMATURE GRANULOCYTES 0.3 % (0-5); LYMPHOCYTES 21.9 % (15-50); MCH 29.5 pg (26.0-34.0); MCHC 34.1 g/dL (31.0-37.0); MCV 86.4 fL (80.0-100.0); MEAN PLATELET VOLUME 9.2 fL (7.4-10.4); MONOCYTES 9.4 % (2-11); NEUTROPHILS 66.7 % (40-80); PLATELET COUNT 287 10x3/uL (130-400); RBC 4.41 10x6/uL (4.00-5.40); RDW 13.6 % (11.5-14.5); WBC 6.6 10x3/uL (4.8-10.8)
[2019-11-25 22:22] LABS: CALCIUM 8.5 mg/dL (8.5-10.1); CARBON DIOXIDE 21.6 mmol/L (21.0-32.0); CREATININE - SERUM 0.9 mg/dL (0.6-1.3); POTASSIUM - SERUM 3.6 mmol/L (3.5-5.1)
[2019-11-25 22:33] LABS: ALBUMIN 3.7 g/dL (3.4-5.0); BILIRUBIN - TOTAL 0.4 mg/dL (0.2-1.3); PROTEIN - SERUM 7.4 g/dL (6.4-8.2)
[2019-11-26] MEDS ORDERED: LOMOTIL 2.5-0.1 EAC1 PO (00:12)
[2019-11-26] MEDS ORDERED: PHENERGAN25 M1 PO (00:12)
[2019-11-26 00:35] VITALS: BP 108/58
== END 2019-11-26 00:37 | disposition home or self-care (01) ==
LOC: D.ER 21:18
PROVIDERS: Family Medicine
DX: A08.4 Viral intestinal infection, unspecified (principal); E16.2 Hypoglycemia, unspecified; I10 Essential (primary) hypertension

== ENCOUNTER 2019-12-01 12:44 | Emergency (ER) | payer BC ==
[2019-11-25 21:22] VITALS: BMI 27.9
[~2019-12-01 12:44] MED LIST changes: +LOMOTIL 2.5-0.1 EAC1 PO; +PHENERGAN25 M1 PO
== END 2019-12-01 13:27 | disposition left against medical advice (07) ==
LOC: D.ER 12:44
DX: J02.9 Acute pharyngitis, unspecified (principal); R05 Cough

== ENCOUNTER 2021-04-10 21:30 | Emergency (ER) | payer SELFPAY ==
[~2021-04-10] VITALS: Ht 167.6 cm; Wt 95.0 kg
[2021-04-10 21:35] VITALS: Ht 167.6 cm; Wt 95.0 kg
[2021-04-10] MEDS ORDERED: PROAIR HFA8.5 G1 INH (22:09)
[2021-04-10] MEDS ORDERED: AUGMENTIN 875-11 TAB PO (22:09)
[2021-04-10 23:04] VITALS: BP 138/85
== END 2021-04-10 23:05 | disposition home or self-care (01) ==
LOC: D.ER 21:30
DX: J30.2 Other seasonal allergic rhinitis (principal); J45.909 Unspecified asthma, uncomplicated; J06.9 Acute upper respiratory infection, unspecified; H66.92 Otitis media, unspecified, left ear; I10 Essential (primary) hypertension

== ENCOUNTER 2021-05-21 22:48 | Emergency (ER) | payer SELFPAY ==
[~2021-05-21] VITALS: Ht 167.6 cm; Wt 95.0 kg
[~2021-05-21 22:48] MED LIST changes: +AUGMENTIN 875-11 TAB PO; +PROAIR HFA8.5 G1 INH
[2021-05-21 22:56] VITALS: BP 135/91; Ht 167.6 cm; Wt 95.0 kg
[2021-05-21 23:47] LABS: INFLUENZA TYPE A NEGATIVE (NEGATIVE); INFLUENZA TYPE B NEGATIVE (NEGATIVE)
[2021-05-22] MEDS ORDERED: OMNICEF300 MG PO (01:10)
== END 2021-05-22 01:30 | disposition home or self-care (01) ==
LOC: D.ER 22:48
PROVIDERS: Emergency Medicine
DX: H66.92 Otitis media, unspecified, left ear (principal); I10 Essential (primary) hypertension; R05 Cough